=== PATIENT | female | born 1970 | race Caucasian/White ===

== ENCOUNTER 2016-08-16 15:11 | Observation (INO) ==
[2016-08-16] MEDS ORDERED: ZOFRAN IV PRN ×2 (16:22→19:52)
[2016-08-16 17:15] LABS: MANUAL DIFF NEEDED? NO
[2016-08-16 17:21] LABS: BASO% 0.3 % (0.0-0.8); HEMATOCRIT 39.5 % (37.0-47.0); IMM GRAN# 0.01 X1000 (0.0-0.04); IMM GRAN% 0.1 % (0.0-0.5); LYMPH# 2.11 X1000 (1.2-3.4); LYMPH% 22.8 % (20.5-51.1); MCH 29.6 PG (27-31); MCHC 32.9 g/dL (33-37); MONO# 0.51 X1000 (0.11-0.59); MONO% 5.5 % (1.7-9.3); MPV 9.1 FL (7.4-10.4); NEUT% 71.3 % (42.2-75.2); PLT 510 X1000 (130-400); RBC 4.39 XMIL (4.2-5.4)
[2016-08-16] MEDS: DEMEROL IV PRN ×2 (17:32→22:57)
[2016-08-16 17:36] LABS: AGAP 16; ALBUMIN 4.5 g/dL (3.5-5.0); ALKALINE PHOSPHATASE 77 U/L (32-104); BUN 13 mg/dL (8-22); CALCIUM 9.1 mg/dL (8.8-10.2); CHLORIDE 102 mmol/L (98-107); COSMO 276; GOT 9 U/L (10-30); GPT 10 U/L (10-36); POTASSIUM 2.9 mmol/L (3.5-5.1); SODIUM 138 mmol/L (136-145); TCO2 20 mmol/L (25-35)
[2016-08-16] MEDS: NS 1,000 ML IV PRN (17:46)
--- NOTE | 2016-08-16 18:06 | HISTORY AND PHYSICAL ---
PRIMARY CARE PHYSICIAN: Dr. Washington. CHIEF COMPLAINT: Urinary tract infection and vomiting. HISTORY OF PRESENTING ILLNESS: This is a 46-year-old female who presents as a direct admit from her primary care physician's office. States that she has had a problem with recurrent UTIs for awhile now and that she was in her primary care physician's office this past Monday. Give a urine sample and a urine culture. Went back today and was told that she needed to be admitted but the primary care physician did not send the urinalysis or the urine culture with her at this time. So, she was admitted and we will do workup from here. PAST MEDICAL HISTORY: Of recurrent UTIs and endometriosis. PAST SURGICAL HISTORY: Hysterectomy and a rectocele repair. FAMILY HISTORY: Of Crohn's in her son. SOCIAL HISTORY: She currently lives with family. Denies any tobacco, alcohol, or illicit drug use. ALLERGIES: To povidone iodine and sulfa drugs. HOME MEDICATIONS: She takes Myrbetriq 50 mg p.o. daily and Phenergan 25 mg q.4 hours p.r.n. LABORATORY DATA: We will obtain a CBC, CMP, blood cultures x2 and a urinalysis with possible reflex culture. REVIEW OF SYSTEMS: She denied any fever, chills, blurred vision, dizziness, chest pain, coughing, shortness of breath. She is positive for nausea, vomiting, and abdominal pain that is suprapubic and some burning with urination. PHYSICAL EXAMINATION: VITAL SIGNS: Temperature 98.5 degrees, pulse 90, respirations 22, blood pressure 120/80, saturating 99% on room air. GENERAL: This is a 46-year-old female who is sitting on the side of the bed. Answers questions appropriately. HEENT: Normocephalic and atraumatic. Pupils are equal, round, reactive to light. Extraocular movements are intact. Oropharynx and nares are clear. NECK: Supple. LUNGS: Clear to auscultation bilaterally with equal lung expansion and chest wall movement. HEART: With regular rate and rhythm. No murmurs, rubs, or gallops. ABDOMEN: Soft, nontender, nondistended. Bowel sounds are present x4 quadrants. EXTREMITIES: There is no clubbing, cyanosis, or edema. NEUROLOGICAL: The cranial nerves 2-12 appear grossly intact. ASSESSMENT: At this time we will give her a diagnosis of a urinary tract infection based off of what her primary care physician said but again we did not get the results from his office so will reobtain those at this time. Nausea, vomiting and suprapubic abdominal pain. PLAN: She has been admitted, placed on telemetry, clear liquid diet at this time. Again, we will obtain a CBC, CMP, UA, blood cultures x2. Place on Demerol 25 IV q.4 hours p.r.n., normal saline at 125 mL an hour and Zofran 4 mg IV q.4 hours p.r.n., and further orders after obtaining and reviewing the laboratory data. Dictated by NEGRO Benito for Jeramie Branham MD cc: NEGRO Benito MD Wayne E. Thomas, MD
[2016-08-16] MEDS ORDERED: TYLENOL PO PRN ×2 (19:25→19:52)
[2016-08-16] MEDS ORDERED: SODIUM CHLORIDE 0.9% INJ SCH (20:00)
[2016-08-16] MEDS ORDERED: POTASSIUM CHLORIDE 20 MEQ/SWI 20 MEQ/100 ML IVPB IV SCH (20:00)
[2016-08-16] MEDS: ZOFRAN IV PRN (20:09)
[2016-08-16] MEDS: ZANAFLEX PO SCH (20:10)
[2016-08-16] MEDS: PROTONIX IV SCH (20:10)
[2016-08-16] MEDS: ROCEPHIN 1 GM/NS 1 GM/50 ML IVPB IV SCH (20:10)
[2016-08-16] MEDS: NORCO-10 PO PRN (20:10)
[2016-08-16] MEDS: RESTORIL PO SCH (20:10)
[2016-08-16] MEDS: PHENERGAN PO PRN (22:57)
[2016-08-17] MEDS: ZOFRAN IV PRN ×4 (00:12→16:47)
[2016-08-17] MEDS: POTASSIUM CHLORIDE 20 MEQ/SWI 20 MEQ/100 ML IVPB IV SCH ×2 (01:20)
[2016-08-17 03:11] LABS: BILIRUBIN URINE NEGATIVE (NEGATIVE); BLOOD URINE TRACE (NEGATIVE); CLARITY SL. CLOUDY (CLEAR); COLOR YELLOW; GLUCOSE URINE NEGATIVE (NEGATIVE); LEUKOCYTES URINE 2+ (NEGATIVE); NITRITE URINE NEGATIVE (NEGATIVE); PROTEIN URINE 1+(30 mg/dL) mg/dL (NEGATIVE); UROBILINOGEN URINE NORMAL
[2016-08-17] MEDS: NS 1,000 ML IV PRN ×2 (03:14→11:15)
[2016-08-17] MEDS: PHENERGAN PO PRN ×2 (03:20→20:29)
[2016-08-17 03:22] LABS: URINE RBC <10 /HPF (<10); URINE WBC <10 /HPF (<10)
[2016-08-17 03:23] LABS: URINE CULTURE PL NEEDED? YES; URINE EPITHELIAL CELLS >10 /HPF (<10); URINE SMALL ROUND CELLS TRANSITIONAL PRESENT
[2016-08-17 03:24] LABS: URINE SOURCE CLEAN CATCH
[2016-08-17] MEDS: DEMEROL IV PRN ×2 (05:52→09:43)
[2016-08-17 06:58] LABS: HEMATOCRIT 37.4 % (37.0-47.0); HEMOGLOBIN 12.4 g/dL (12.0-16.0); MCH 30.2 PG (27-31); MCHC 33.2 g/dL (33-37); MPV 9.3 FL (7.4-10.4); RBC 4.11 XMIL (4.2-5.4)
[2016-08-17 07:04] LABS: AGAP 14; ALBUMIN 4.2 g/dL (3.5-5.0); ALKALINE PHOSPHATASE 68 U/L (32-104); BUN 15 mg/dL (8-22); CALCIUM 8.6 mg/dL (8.8-10.2); CHLORIDE 106 mmol/L (98-107); COSMO 278; GOT 9 U/L (10-30); GPT 9 U/L (10-36); POTASSIUM 3.5 mmol/L (3.5-5.1); SODIUM 139 mmol/L (136-145); TCO2 19 mmol/L (25-35); TOTAL PROTEIN 7.3 g/dL (6.3-8.3)
[2016-08-17] MEDS: ZANAFLEX PO SCH ×2 (09:44→20:18)
[2016-08-17] MEDS: DIFLUCAN PO SCH (09:44)
[2016-08-17] MEDS ORDERED: SODIUM CHLORIDE 0.9% INJ ONE (13:45)
[2016-08-17] MEDS ORDERED: PHENERGAN IV ONE (13:45)
--- NOTE | 2016-08-17 14:14 | PROGRESS NOTE ---
DATE: 08/17/2016 SUBJECTIVE: Patient has no focal complaints. OBJECTIVE: Vital Signs: Blood pressure is 119/67, heart rate 79, respiratory rate 18, temperature 98.4 degrees, 98% on room air. Cardiovascular: Regular rate and rhythm. Pulmonary: Bilateral breath sounds. Clear to auscultation. GI: Soft, nontender, nondistended. Bowel sounds are positive. Extremities: No clubbing or cyanosis. Lymphatics: No peripheral edema. Neurological: Nonfocal. LABORATORY DATA: White count 8. CMP is normal. Urine cultures and blood cultures are negative. PROBLEM LIST: 1. Urinary tract infection, unclear. We will continue empiric antibiotics. She is on Rocephin day 2. Urine culture is negative. White count is normal. The only thing is she has protracted nausea and vomiting reportedly though cannot tolerate anything p.o. However there is no witnessed emesis. We will discontinue following. 2. Dehydration. Continue IV fluids. 3. Disposition. I think she could probably go home soon when she is tolerating p.o. Again she reports not being able to tolerate p.o. right now, so we will continue to follow. Hopefully home soon. cc: Newton Jose MD
[2016-08-17] MEDS: TORADOL IV PRN (14:19)
[2016-08-17] MEDS: ROCEPHIN 1 GM/NS 1 GM/50 ML IVPB IV SCH (20:16)
[2016-08-17] MEDS: PROTONIX IV SCH (20:16)
[2016-08-17] MEDS: NORCO-10 PO PRN (20:16)
[2016-08-17] MEDS: RESTORIL PO SCH (20:18)
[2016-08-18] MEDS: NORCO-10 PO PRN (03:41)
[2016-08-18] MEDS: PHENERGAN PO PRN ×3 (03:42→14:16)
[2016-08-18] MEDS: NS 1,000 ML IV PRN ×2 (03:42→09:28)
[2016-08-18 05:55] LABS: HEMATOCRIT 34.7 % (37.0-47.0); MCH 29.3 PG (27-31); MCHC 31.7 g/dL (33-37); MCV 92.3 FL (81-99); MPV 9.1 FL (7.4-10.4); RBC 3.76 XMIL (4.2-5.4)
[2016-08-18 06:11] LABS: AGAP 14; BUN 11 mg/dL (8-22); CALCIUM 7.9 mg/dL (8.8-10.2); CHLORIDE 108 mmol/L (98-107); COSMO 279; POTASSIUM 3.3 mmol/L (3.5-5.1); SODIUM 140 mmol/L (136-145); TCO2 18 mmol/L (25-35)
[2016-08-18] MEDS: DIFLUCAN PO SCH (09:27)
[2016-08-18] MEDS: TORADOL IV PRN ×2 (09:27→14:16)
[2016-08-18] MEDS: ZANAFLEX PO SCH (09:27)
[2016-08-18] MEDS: POTASSIUM CHLORIDE 20 MEQ/SWI 20 MEQ/100 ML IVPB IV SCH ×2 (11:57→14:09)
[2016-08-18 14:31] VITALS: BP 149/80
[2016-08-18] MEDS ORDERED: KLOR-CON PO ONE (15:07)
--- NOTE | 2016-08-19 14:23 | DISCHARGE SUMMARY ---
ADMISSION DATE: 08/16/2016 DISCHARGE DATE: 08/18/2016 DISCHARGE DIAGNOSES: 1. Streptococcal urinary tract infection early pyelonephritis. 2. Dehydration. 3. Nausea, vomiting. 4. Hypokalemia. PROBLEM LIST: Please refer complete Gema and Magi Is a 46-year-old female with history of recurrent UTIs. 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 She was seen by Dr. Washington in the office. He was concerned that she was getting dehydrated because of protracted nausea, vomiting. She had a UTI which urine culture was positive for group B strep however she did not really take any of the medications again, probably could not tolerate them because she could not tolerate p.o. In any case, she was evaluated and sent here for further management, direct admitted. Workup was really unremarkable here. White count was normal. Her urine was mostly squames really not that remarkable. Potassium little low at 2.9. She was given fluids and IV Rocephin and she clinically improved. Culture did grow out group B Strep greater than 100,000 colonies sensitive to Levaquin, Rocephin, penicillin. She had been initially planned for amoxicillin. She was complaining a little bit of flank pain so possible that she had some early pyelonephritis, however clinically she tolerated clears without difficulty so I felt comfortable with discharge on the . DISCHARGE MEDICATIONS: Omnicef 300 p.o. b.i.d. for 7 days, Diflucan that was per Dr. Washington, Lehr p.r.n. pain, Phenergan p.r.n. nausea, temazepam 30 at bedtime, tizanidine 4 b.i.d. DISCHARGE CONDITION: Stable. TIME SPENT: 32 minute discharge. cc: Oneil Washingtno MD
== END 2016-08-18 19:07 | disposition home or self-care (01) ==
LOC: P.DIRADM → SUATTDRO 15:11 → P.MEDSURG 15:16
PROVIDERS: ATTEND Internal Medicine